=== PATIENT | male | born 1975 | race Caucasian/White ===

== ENCOUNTER 2019-12-07 08:13 | Emergency (ER) | payer BC ==
[~2019-12-07] VITALS: Ht 188 cm; Wt 85.0 kg
[2019-12-07 08:59] VITALS: BP 121/54
== END 2019-12-07 09:02 | disposition home or self-care (01) ==
LOC: ED 08:48
DX: J06.9 Acute upper respiratory infection, unspecified (principal); Z20.828 Contact with and (suspected) exposure to other viral communicable diseases; R50.9 Fever, unspecified; M79.10 Myalgia, unspecified site; R09.81 Nasal congestion; J45.909 Unspecified asthma, uncomplicated
CPT/HCPCS: 36415; 87635; 99283